=== PATIENT | male | born 1955 | race Caucasian/White ===

== ENCOUNTER 2018-02-03 10:12 | Inpatient (IN) | payer BC ==
--- NOTE | 2018-01-25 13:48 | HP ---
DATE OF ADMISSION: 02/03/2018 REASON FOR ADMISSION: Chronically incarcerated ventral hernia. BRIEF HISTORY: This is a 62-year-old gentleman who has occasional discomfort in the mid aspect of his abdomen. Patient states when he has the discomfort the hernia in his mid abdomen becomes hard. He has had no bouts of nausea or vomiting. No change in bowel habits. Patient now wished to have his hernia repaired. PAST MEDICAL HISTORY: Significant for a diabetes, and arthritic changes. He denies coronary artery disease, hypertension. PAST SURGICAL HISTORY: Patient had left foot surgery in 10/2017. ALLERGIES: None. MEDICATION: Lantus, amlodipine, atorvastatin, losartan, Janumet, Farxiga and Saxenda. SOCIAL HISTORY: Does not smoke nor drink. PHYSICAL EXAMINATION: ABDOMEN: Soft, nontender, nondistended. 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 He has a hernia in the midline noted. The actual defects are not truly appreciated. The skin overlying the hernia is mildly thinned. IMPRESSION/PLAN: Chronically incarcerated complex ventral hernia: This is a 62-year-old gentleman with a known ventral hernia. At this point he is becoming more symptomatic from the hernia and therefore will plan for operative repair. His recurrence rates are significantly higher due to the upper midline diastasis that is noted. The indications, alternatives, complications of the procedure are discussed. Questions answered. Will plan for an open repair. JAN CHRISTINA M.D. [id number] cc: Dr. Irina Lam, [facility], phone number [phone] [facility]
[2018-02-02 08:35] VITALS: BMI 30.6
[2018-02-03] MEDS ORDERED: DEXAMETHASONE SOD PHOSPHATE 4 MG/1 ML VIAL ONE (11:12)
[2018-02-03] MEDS ORDERED: BUPIVACAINE HCL/PF 0.25% (2.5MG/ML) 10 ML VIAL ONE (11:12)
[2018-02-03] MEDS ORDERED: CEFAZOLIN 1 GM/D5W 1 GM/50 ML BAG ONE (11:21)
[2018-02-03] MEDS ORDERED: TAMSULOSIN HCL 0.4 MG CAP ONE (11:21)
[2018-02-03] MEDS ORDERED: TAMSULOSIN HCL 0.4 MG CAP PO ONE (11:30)
[2018-02-03] MEDS ORDERED: MIDAZOLAM HCL 2 MG/2 ML SINGLE DOSE VIAL ONE (12:04)
[2018-02-03] MEDS ORDERED: ROCURONIUM BROMIDE 50 MG/5 ML VIAL ONE ×3 (12:09→13:05)
[2018-02-03] MEDS ORDERED: PROPOFOL 20 ML ONE (12:09)
[2018-02-03] MEDS ORDERED: ceFAZolin SODIUM 1 GM VIAL IVPB ONE (12:13)
[2018-02-03] MEDS ORDERED: NEOSTIGMINE METHYLSULFATE 0.5 MG/1 ML - 10 ML MDV ONE (13:33)
[2018-02-03] MEDS ORDERED: BUPIVACAINE HCL/PF 0.25% (2.5MG/ML) 10 ML VIAL IJ ONE (13:40)
[2018-02-03] MEDS ORDERED: DEXAMETHASONE SOD PHOSPHATE 4 MG/1 ML VIAL NR ONE (13:40)
[2018-02-03] MEDS ORDERED: ONDANSETRON 4 MG/2 ML VIAL IVPUSH PRN ×2 (14:07→14:41)
[2018-02-03] MEDS ORDERED: LACTATED RINGERS SOLUTION 1,000 ML IV SCH (14:15)
[2018-02-03] MEDS ORDERED: MORPHINE SULFATE 8 MG/ML VIAL IVPB PRN (14:41)
[2018-02-03] MEDS ORDERED: ACETAMINOPHEN 325 MG TABLET (FP) PO PRN (14:41)
[2018-02-03] MEDS ORDERED: oxyCODONE HCL 5 MG TABLET PO PRN (14:41)
[2018-02-03] MEDS ORDERED: SODIUM CHLORIDE 1,000 ML IV SCH (14:45)
[2018-02-03] MEDS: INSULIN SLIDING SCALE (NOVOLOG) 1 VIAL SQ SCH ×2 (17:58→22:37)
[2018-02-03] MEDS ORDERED: PATIENT'S OWN MEDICATION (NON-FORMULARY) (Sitagliptin Phos/Metformin Hcl [Janumet 50-1,000 PO SCH (22:00)
[2018-02-03] MEDS ORDERED: amLODIPine BESYLATE 10 MG TABLET (FP) PO SCH (22:00)
[2018-02-03] MEDS ORDERED: [UNRECOGNIZED DRUG - OTHER] PO SCH (22:00)
[2018-02-03] MEDS ORDERED: INSULIN GLARGINE HUM REC ANLOG 50 UNIT SQ SCH (22:00)
[2018-02-03] MEDS ORDERED: [UNRECOGNIZED DRUG - OTHER] SQ SCH (22:00)
[2018-02-03] MEDS ORDERED: ATORVASTATIN PO SCH (22:00)
[2018-02-03] MEDS ORDERED: AMLODIPINE PO SCH (22:00)
[2018-02-03] MEDS ORDERED: ATORVASTATIN CA 20 MG TABLET (FP) PO SCH (22:00)
[2018-02-04 05:55] VITALS: TEMP 98.4
[2018-02-04] MEDS ORDERED: sitaGLIPtin PHOSPHATE 50 MG TABLET PO SCH (07:00)
[2018-02-04] MEDS ORDERED: metFORMIN HCL 500 MG TABLET (FP) PO SCH (07:00)
[2018-02-04] MEDS: INSULIN SLIDING SCALE (NOVOLOG) 1 VIAL SQ SCH ×2 (07:18→12:10)
--- NOTE | 2018-02-04 07:58 | PN ---
Progress Note (short form) - Note Progress Note: Post op day#1.S/P Ventral hernia repair under GA uneventful.Patient stable.No any anesthesia related problem.Patient Dc from the anesthesia care.
--- NOTE | 2018-02-04 09:12 | OP ---
DATE OF OPERATION: 02/03/2018 PREOPERATIVE DIAGNOSIS: Chronic incarcerated, complex ventral hernia. POSTOPERATIVE DIAGNOSIS: Chronic incarcerated, complex ventral hernia. PROCEDURE: Open, bilateral-component separation repair of complex, chronically incarcerated ventral hernia with mesh, rectus sheath block bilaterally ( performed by Dr. Bradford Jarrell). SURGEON: Mushtaq Broussard MD MECHANICAL RESEARCH ENGINEER: Bradford Jarrell MD ANESTHESIOLOGIST: Shayna Dawkins MD (general). ESTIMATED BLOOD LOSS: Minimal. SPECIMEN: None. INDICATION FOR PROCEDURE: This is a 62-year-old gentleman who presents with a complaint of discomfort at the level of his chronically incarcerated ventral hernia. He is now here for operative repair. DESCRIPTION OF PROCEDURE: A midline incision was made, deepened to the subcutaneous tissue. The hernia identified, dissected down to the level of the fascia bluntly. At the fascial level, the hernia was opened and the posterior rectus sheath identified. The posterior rectus sheath on the right side was divided sharply. Next, the retrorectus space was developed with blunt dissection out laterally on the right side toward the perforated vessels at the level just medial to the perforating vessels. The fascia was subsequently scored approximately 5 inches above and below the actual defect. The myofascial separation of the transversus was performed at this level and allowed the posterior sheath to be moved medially. Once the myofascial separation was completed on the patient's right side, a similar approach was used on the left. On the left side, the posterior rectus space was identified by dividing the posterior sheath. Next, the posterior sheath was then off the rectus with blunt dissection, and just medial to the perforating vessels, the fascia was scored with the cautery. Blunt dissection was used to then develop the plane beyond the myofascial separation. The myofascial separation was taken approximately 5 inches above and below the defect. The transversus posterior layer was then reapproximated in the midline with a running 3-0 Maxon locking suture, the defect measured, and a large 15 x 15 piece of ProGrip along with a 10 x 12 piece of OviTex was used for the operative repair. The 2 pieces of mesh were sewn together with interrupted 3-0 Vicryl suture. The OviTex was laid on the transversus side, the Versatex on the retrorectus side. The mesh placed into its appropriate retrorectus location, fanned out superiorly, medially, inferior, and laterally. The mesh was then anchored with interrupted AbsorbaTack sutures. The mesh itself was irrigated. The operative field noted to be hemostatic. Under direct vision, a rectus sheath block was then performed by the assistant accounting manager surgeon with a total of 40 mL of 0.25% Marcaine with 4 mg of Decadron. Both rectus sheaths were injected. The midline fascia reapproximated with interrupted number 1 PDS suture. This suture was placed in a 4:1 type of ratio. Next, the subcutaneous space irrigated and then closed with devendra. At the conclusion of this case, sponge counts were correct. ATTESTATION: A brief operative note handwritten on the preprinted form. [facility] was queried prior to giving any narcotics, and that will be done electronically. Joe LAMAR [id number] cc: Irina Lam MD, [facility]
[2018-02-04] MEDS ORDERED: PATIENT'S OWN MEDICATION (NON-FORMULARY) (Dapagliflozin Propanediol [Farxiga] 10 MG) PO SCH (10:00)
[2018-02-04] MEDS ORDERED: ENOXAPARIN NA (PORCINE) 40 MG/0.4 ML DISP.SYRIN SQ SCH (10:00)
[2018-02-04] MEDS ORDERED: PATIENT'S OWN MEDICATION (NON-FORMULARY) (Losartan/Hydrochlorothiazide [Losartan-Hctz 100- PO SCH (10:00)
[2018-02-04] MEDS ORDERED: PANTOPRAZOLE SODIUM 40 MG VIAL IVPUSH SCH (10:00)
[2018-02-04] MEDS ORDERED: LOSARTAN 50MG/HCTZ 12.5MG 1 TAB (FP) PO SCH (10:00)
[2018-02-04 12:31] VITALS: BP 138/73; PULSE 94
--- NOTE | 2018-02-05 11:30 | DS ---
DATE OF ADMISSION: 02/03/2018 DATE OF DISCHARGE: 02/04/2018 ADMISSION DIAGNOSIS: Incisional hernia with preexisting diabetes. DISCHARGE DIAGNOSIS: Incisional hernia with preexisting diabetes. BRIEF HISTORY: A 60-year-old male who was admitted to [facility] on February 03 for surgical management of a complex incisional hernia. He underwent repair of this hernia utilizing mesh as well as component separation, myofascial release, and abdominal wall reconstruction. Please reference Dr. Mushtaq Broussard's operative report from that date. Overnight the patient did well. At the time of discharge, his discomfort is being managed by oral narcotics. He is able to ambulate, void, and tolerate liquid diet. He will go home on his usual home medications. In addition, he will have a new prescription for Percocet which he will take as needed for pain. He will empty his drain daily or when full. He will follow with Dr. Broussard in approximately 2 weeks' time for staple removal. He is okay to walk. He will not lift anything more than 20 pounds, at the time of his discharge, his abdomen is soft, nontender. His incision is clean without sign of infection. He is ambulating, voiding and tolerating diet. DO KEISHA PETERS/[id number]
== END 2018-02-04 14:00 | disposition home or self-care (01) | DRG 355 ==
LOC: JASU-SURG 10:12 → JSAMEDAYSX 14:41 → J8W 16:19
PROVIDERS: ADMIT Surgery; ATTEND Surgery
PROC: 0WUF0JZ Supplement Abdominal Wall with Synthetic Substitute, Open Approach (ICD-10-PCS; principal; 2018-02-03 11:30)
DX: K43.6 Other and unspecified ventral hernia with obstruction, without gangrene (principal)
CPT/HCPCS: 82962; 94760